=== PATIENT | female | born 1955 | race Caucasian/White ===

== ENCOUNTER → 2025-04-26 | Outpatient (CLI) | payer MEDICARE, SELFPAY ==
--- NOTE | 2025-04-26 17:27 | RAD_ITS ---
PROCEDURE: L/S SPINE MIN 4 VIEWS 04/26/2025 REASON FOR EXAM: HIP PAIN, SACROILIAC PAIN TECHNIQUE: Procedure Code: RADSPLS Modality: DX Procedure: L/S SPINE MIN 4 VIEWS COMPARISON: None FINDINGS: Curvature: No significant scoliosis is seen. Other findings: Demineralization of the visualized lumbar vertebrae. Other: Mild degree of disc space narrowing at multiple levels. A left-sided spinal cord stimulator device is seen. The sacroiliac joints are unremarkable. RAD/L/S Spine Min 4 Views IMPRESSION: Osteopenia. Multilevel disc space narrowing. A left-sided spinal cord stimulating device seen. Reading Location: [id number]
--- NOTE | 2025-04-26 17:27 | RAD_ITS ---
PROCEDURE: HIPS B/L MIN 2 VIEWS W/ PELVIS 04/26/2025 REASON FOR EXAM: HIP PAIN, SACROILIAC PAIN TECHNIQUE: Procedure Code: [id number] Modality: DX Procedure: HIPS B/L MIN 2 VIEWS W/ PELVIS Laterality: Bilateral hips. COMPARISON: None FINDINGS: Bones: No fracture is seen. Joints: Mild degree of joint space narrowing involving both hip joints. Soft tissues: The battery pack of a left-sided spinal cord stimulator device seen. Other: RAD/Hips B/L min 2 views w/ Pelvis IMPRESSION: DEGENERATIVE OSTEOARTHROSIS. NO ACUTE FINDINGS. Reading [id number]
[2025-04-26 19:21] LABS: Barbiturate Urine NEGATIVE (< 200 ng/mL); Benzodiazepine Urine PRESUMPTIVE POSITIVE (< 200 ng/mL); PCP Urine NEGATIVE (< 25 ng/mL); THC Urine NEGATIVE (< 50 ng/mL)
== END | disposition home or self-care (01) ==
PROVIDERS: Referring Provider Anesthesiology; Visit Provider Anesthesiology
DX: F11.20 Opioid dependence, uncomplicated (principal); M16.0 Bilateral primary osteoarthritis of hip; M53.3 Sacrococcygeal disorders, not elsewhere classified
CPT/HCPCS: 72110; 73521; 80307